=== PATIENT | female | born 1995 | race Two or more races ===

== ENCOUNTER 2018-08-03 12:48 | Emergency (ER) | payer MEDICAID ==
[~2018-08-03] VITALS: Ht 157.5 cm; Wt 50.0 kg
[~2018-08-03 12:48] MED LIST: LEVE500T19 PO
[2018-08-03] MEDS ORDERED: SODIUM CHLORIDE 0.9% 1,000 ML IV ONE (13:17)
[2018-08-03] MEDS ORDERED: LEVETIRACETAM 1000MG/100ML 100 ML IV ONE (13:30)
[2018-08-03 14:03] LABS: EOSINOPHILS % 2.8 % (0.0-5.0); HEMATOCRIT. 38.1 % (36.0-48.0); HEMOGLOBIN. 13.1 g/dL (12.0-16.0); LYMPHOCYTES % 35.8 % (20.0-50.0); MEAN CORPUSCULAR HEMOGLOBIN 30.5 pg (28.0-32.0); MEAN CORPUSCULAR VOLUME 88.8 fL (81.0-99.0); MEAN PLATELET VOLUME 9.1 fl (7.4-10.4); MONOCYTES % 5.9 % (2.0-8.0); NEUTROPHILS % 54.5 % (40.0-76.0); PLATELET 204 x1000/uL (130-400); RED BLOOD CELL COUNT 4.28 mill/uL (4.2-5.4); RED CELL DISTRIBUTION WIDTH 13.1 % (11.6-14.6)
[2018-08-03 14:07] LABS: CHLORIDE 109 mEq/L (98-107)
[2018-08-03 14:11] LABS: ETHANOL BLOOD < 10 mg/dL
[2018-08-03 15:38] LABS: CLARITY URINE CLOUDY (CLEAR); COLOR URINE YELLOW (YELLOW); KETONES URINE TRACE (NEGATIVE); LEUKOCYTE ESTERASE URINE NEGATIVE (NEGATIVE); NITRITE URINE NEGATIVE (NEGATIVE); OCCULT BLOOD URINE 2+ (NEGATIVE); PROTEIN URINE NEGATIVE (NEGATIVE); SPECIFIC GRAVITY URINE 1.016 (1.005-1.030); UROBILINOGEN URINE 0.2 E.U./dL (0.2-1.0)
[2018-08-03 16:00] VITALS: BP 120/78
[2018-08-03 16:04] LABS: *AMPHETAMINES SCREEN URINE NEGATIVE (NEGATIVE); CANNABINOID URINE SCREEN NEGATIVE (NEGATIVE); METHADONE URINE SCREEN NEGATIVE (NEGATIVE); OPIATES URINE SCREEN NEGATIVE (NEGATIVE); PHENCYCLIDINE URINE SCREEN NEGATIVE (NEGATIVE)
[2018-08-03 16:05] LABS: *BARBITURATES SCREEN URINE NEGATIVE (NEGATIVE); *BENZODIAZEPINES SCREEN URINE NEGATIVE (NEGATIVE); *COCAINE SCREEN URINE NEGATIVE (NEGATIVE)
== END 2018-08-03 17:08 | disposition home or self-care (01) ==
LOC: ER 12:52
DX: R56.9 Unspecified convulsions (principal)
CPT/HCPCS: 36415; 80053; 80305; 81003; 85025; 96365; 96366; 99283; G0482; J1953; J7030

== ENCOUNTER 2022-01-28 16:21 | Inpatient (IN) | payer MEDICAID ==
[~2022-01-28] VITALS: Ht 157.5 cm; Wt 48.1 kg
[2022-01-28] MEDS ORDERED: LORAZEPAM 2MG/ML CPJ ONE (18:15)
[2022-01-28] MEDS ORDERED: LEVETIRACETAM 1000MG PREMIX 100 ML IV ONE (18:15)
[2022-01-28] MEDS ORDERED: SODIUM CHLORIDE 0.9% 1,000 ML IV ONE (18:15)
[2022-01-28] MEDS ORDERED: LORAZEPAM 2MG/ML CPJ IV ONE (18:15)
[2022-01-28 19:18] LABS: BASOPHILS % 0.9 % (0.0-2.0); EOSINOPHILS % 1.4 % (0.0-5.0); HEMATOCRIT. 36.3 % (36.0-48.0); HEMOGLOBIN. 12.3 g/dL (12.0-16.0); LYMPHOCYTES % 17.6 % (20.0-50.0); MEAN CORPUSCULAR HEMOGLOBIN 30.2 pg (28.0-32.0); MEAN CORPUSCULAR VOLUME 89.2 fL (81.0-99.0); MEAN PLATELET VOLUME 9.4 fl (7.4-10.4); MONOCYTES % 3.8 % (2.0-8.0); NEUTROPHILS % 76.3 % (40.0-76.0); PLATELET 257 x1000/uL (130-400); RED BLOOD CELL COUNT 4.07 mill/uL (4.2-5.4); RED CELL DISTRIBUTION WIDTH 12.9 % (11.6-14.6)
[2022-01-28 19:29] LABS: CHLORIDE 107 mEq/L (98-107); HCG SCREEN NEGATIVE
[2022-01-28 19:35] LABS: ETHANOL BLOOD < 10 mg/dL
[2022-01-29] VITALS (8 sets, daily range): BP systolic 96–106; BP diastolic 52–62
[2022-01-29] MEDS ORDERED: LORAZEPAM 2MG/ML CPJ IV PRN (02:45)
[2022-01-29] MEDS ORDERED: ACETAMINOPHEN 325MG TABLET PO NR (03:00)
[2022-01-29] MEDS ORDERED: ACETAMINOPHEN 325MG TABLET PO PRN (05:30)
[2022-01-29] MEDS ORDERED: LEVETIRACETAM 500MG TABLET PO SCH (09:00)
[2022-01-29] MEDS ORDERED: LEVE500T19 PO (10:41)
== END 2022-01-29 18:42 | disposition home or self-care (01) | DRG 53 ==
LOC: ER 16:21 → 6WST 21:18 → ENRESERV 23:19 → 6WST 01-29 02:23
PROVIDERS: ADMIT Internal Medicine; ATTEND Internal Medicine
DX: G40.909 Epilepsy, unspecified, not intractable, without status epilepticus (principal); S01.551A Open bite of lip, initial encounter; X58.XXXA Exposure to other specified factors, initial encounter; Y93.89 Activity, other specified; Y92.89 Other specified places as the place of occurrence of the external cause; Y99.8 Other external cause status
CPT/HCPCS: 36415; 71045; 80053; 80320; 82962; 84703; 85025; 93005; 99291; J1953; J2060; J7030; G0480

== ENCOUNTER 2023-01-15 20:57 | Emergency (ER) | payer SELFPAY ==
[~2023-01-15] VITALS: Ht 172.7 cm; Wt 59.0 kg
[2023-01-15] MEDS ORDERED: LEVETIRACETAM 500MG TABLET PO ONE (21:30)
[2023-01-15] MEDS ORDERED: ONDANSETRON HCL 4MG/2ML INJ IV ONE ×2 (22:15→23:15)
[2023-01-15] MEDS ORDERED: LEVETIRACETAM 500MG PREMIX 100 ML IV ONE (22:15)
[2023-01-15] MEDS ORDERED: SODIUM CHLORIDE 0.9% 1,000 ML IV ONE ×2 (22:15→23:15)
[2023-01-15 22:43] LABS: BASOPHILS % 1.2 % (0.0-2.0); EOSINOPHILS % 2.2 % (0.0-5.0); HEMATOCRIT. 36.2 % (36.0-48.0); HEMOGLOBIN. 12.4 g/dL (12.0-16.0); LYMPHOCYTES % 14.2 % (20.0-50.0); MEAN CORPUSCULAR HEMOGLOBIN 30.6 pg (28.0-32.0); MEAN CORPUSCULAR VOLUME 89.1 fL (81.0-99.0); MEAN PLATELET VOLUME 8.9 fl (7.4-10.4); MONOCYTES % 3.7 % (2.0-8.0); NEUTROPHILS % 78.7 % (40.0-76.0); PLATELET 251 x1000/uL (130-400); RED BLOOD CELL COUNT 4.06 mill/uL (4.2-5.4); RED CELL DISTRIBUTION WIDTH 12.8 % (11.6-14.6)
[2023-01-15 22:51] LABS: CHLORIDE 109 mEq/L (98-107)
[2023-01-15 22:56] LABS: HCG SCREEN NEGATIVE
[2023-01-15 22:59] LABS: ETHANOL BLOOD < 10 mg/dL (-10)
[2023-01-15] MEDS ORDERED: MAGNESIUM/ALUMINUM HYDROXIDE/SIMETHICONE 30ML UDC PO ONE (23:15)
[2023-01-16] VITALS: BP 90/51
[2023-01-16] MEDS ORDERED: LEVE750T4 MT (00:02)
[2023-01-16] MEDS ORDERED: ONDA4TAB50 MT (00:02)
== END 2023-01-16 01:19 | disposition home or self-care (01) ==
LOC: ER 20:57
DX: R56.9 Unspecified convulsions (principal)
CPT/HCPCS: 36415; 80053; 80320; 84703; 85025; 96374; 96375; 96376; 99284; J1953; J2405; J7030; Z7610; G0480